=== PATIENT | male | born 1955 | race African-American/Black ===

== ENCOUNTER 2019-12-21 05:40 | Emergency (ER) | payer MEDICAID ==
[~2019-12-21] VITALS: Ht 180.3 cm; Wt 82.0 kg
[2019-12-21 05:45] VITALS: BP 91/58
[2019-12-21] MEDS ORDERED: ACETAMINOPHEN 325MG TABLET PO ONE (06:15)
[2019-12-21 06:30] LABS: BASOPHILS % 0.8 % (0.0-2.0); EOSINOPHILS % 1.5 % (0.0-5.0); HEMATOCRIT. 33.4 % (42.0-52.0); HEMOGLOBIN. 10.8 g/dL (14.0-18.0); LYMPHOCYTES % 23.7 % (20.0-50.0); MEAN CORPUSCULAR HEMOGLOBIN 26.8 pg (28.0-32.0); MEAN CORPUSCULAR VOLUME 83.4 fL (80.0-94.0); MEAN PLATELET VOLUME 9.3 fl (7.4-10.4); MONOCYTES % 9.1 % (2.0-8.0); NEUTROPHILS % 64.9 % (40.0-76.0); PLATELET 198 x1000/uL (130-400); RED BLOOD CELL COUNT 4.01 mill/uL (4.7-6.1); RED CELL DISTRIBUTION WIDTH 16.6 % (11.6-14.6)
[2019-12-21 06:35] LABS: CHLORIDE 112 mEq/L (98-107)
[2019-12-21 06:39] LABS: ETHANOL BLOOD < 10 mg/dL
[2019-12-21 06:58] LABS: CLARITY URINE CLOUDY (CLEAR); COLOR URINE DK YELLOW (YELLOW); KETONES URINE TRACE (NEGATIVE); LEUKOCYTE ESTERASE URINE 1+ (NEGATIVE); NITRITE URINE NEGATIVE (NEGATIVE); OCCULT BLOOD URINE 2+ (NEGATIVE); PH URINE 5.5 (4.5-8.0); PROTEIN URINE 1+ (NEGATIVE); SPECIFIC GRAVITY URINE 1.022 (1.005-1.030)
[2019-12-21 07:08] LABS: METHADONE URINE SCREEN NEGATIVE (NEGATIVE); OPIATES URINE SCREEN NEGATIVE (NEGATIVE); PHENCYCLIDINE URINE SCREEN PRESUMTIVE POSITIVE (NEGATIVE)
[2019-12-21 07:09] LABS: *AMPHETAMINES SCREEN URINE NEGATIVE (NEGATIVE); *BARBITURATES SCREEN URINE NEGATIVE (NEGATIVE); *BENZODIAZEPINES SCREEN URINE NEGATIVE (NEGATIVE); *COCAINE SCREEN URINE NEGATIVE (NEGATIVE); CANNABINOID URINE SCREEN NEGATIVE (NEGATIVE)
== END 2019-12-21 08:45 | disposition home or self-care (01) ==
LOC: ER 05:59
DX: M79.661 Pain in right lower leg (principal); F15.10 Other stimulant abuse, uncomplicated
CPT/HCPCS: 36415; 80053; 80305; 80320; 81003; 82962; 85025; 93005; 93971; 99285; G0480

== ENCOUNTER 2022-01-29 13:38 | Inpatient (IN) | payer MEDICARE, MEDICAID ==
[~2022-01-29] VITALS: Ht 180.3 cm; Wt 90.7 kg
[2022-01-29] MEDS ORDERED: SODIUM CHLORIDE 0.9% 1,000 ML IV ONE (14:15)
[2022-01-29 15:58] LABS: BASOPHILS % 0.3 % (0.0-2.0); EOSINOPHILS % 3.3 % (0.0-5.0); HEMATOCRIT. 45.8 % (42.0-52.0); HEMOGLOBIN. 15.1 g/dL (14.0-18.0); LYMPHOCYTES % 16.6 % (20.0-50.0); MEAN CORPUSCULAR HEMOGLOBIN 27.6 pg (28.0-32.0); MEAN PLATELET VOLUME 8.3 fl (7.4-10.4); MONOCYTES % 7.4 % (2.0-8.0); NEUTROPHILS % 72.4 % (40.0-76.0); PLATELET 250 x1000/uL (130-400); RED BLOOD CELL COUNT 5.45 mill/uL (4.7-6.1); RED CELL DISTRIBUTION WIDTH 18.6 % (11.6-14.6)
[2022-01-29 16:08] LABS: D-DIMER 0.31 mg/L FEU (<0.50); PARTIAL THROMBOPLASTIN TIME 27.1 sec (23.4-31.0); PROTHROMBIN TIME 11.1 sec (9.6-11.0)
[2022-01-29 16:20] LABS: CHLORIDE 102 mEq/L (98-107)
[2022-01-29 16:29] LABS: ETHANOL BLOOD < 10 mg/dL
[2022-01-29] MEDS ORDERED: CLOPIDOGREL 75MG TABLET PO ONE (16:45)
[2022-01-29] MEDS ORDERED: NITROGLYCERIN 0.4MG TABLET SL SL PRN ×2 (16:45→21:45)
[2022-01-29 17:34] LABS: *AMPHETAMINES SCREEN URINE NEGATIVE (NEGATIVE); *BARBITURATES SCREEN URINE NEGATIVE (NEGATIVE); *BENZODIAZEPINES SCREEN URINE NEGATIVE (NEGATIVE); *COCAINE SCREEN URINE NEGATIVE (NEGATIVE); CANNABINOID URINE SCREEN NEGATIVE (NEGATIVE); METHADONE URINE SCREEN NEGATIVE (NEGATIVE); OPIATES URINE SCREEN NEGATIVE (NEGATIVE); PHENCYCLIDINE URINE SCREEN NEGATIVE (NEGATIVE)
[2022-01-29] MEDS ORDERED: ONDANSETRON HCL 4MG/2ML INJ IV STA (18:09)
[2022-01-29] MEDS ORDERED: MORPHINE SULFATE 4 MG/ML CPJ (NOT FOR IM USE) IV STA (18:09)
[2022-01-29] MEDS ORDERED: ALBUTEROL (0.083%) 2.5MG/3ML NEB HHN STA (18:09)
[2022-01-29] MEDS ORDERED: ONDANSETRON HCL 4MG/2ML INJ IV PRN (20:45)
[2022-01-29] MEDS ORDERED: ACETAMINOPHEN 325MG TABLET PO PRN (20:45)
[2022-01-29] MEDS ORDERED: CLONIDINE 0.1MG TABLET PO PRN (20:45)
[2022-01-29] MEDS ORDERED: DIPHENHYDRAMINE 50MG/ML VIAL IV PRN (20:45)
[2022-01-29] MEDS ORDERED: HYDROCODONE/ACETAMINOPHEN 5/325MG TABLET PO PRN (23:30)
[2022-01-30] VITALS (7 sets, daily range): BP systolic 111–135; BP diastolic 69–82
[2022-01-30] MEDS: MORPHINE SULFATE 2 MG/ML CPJ (NOT FOR IM USE) IV PRN ×5 (00:17→21:13)
[2022-01-30] MEDS ORDERED: KEPP500 PO (01:19)
[2022-01-30] MEDS ORDERED: METF-414 PO (03:44)
[2022-01-30] MEDS: IPRATROPIUM/ALBUTEROL 0.5-3(2.5)MG/3ML NEB HHN PRN ×3 (04:41→17:15)
[2022-01-30 06:13] LABS: BASOPHILS % 0.5 % (0.0-2.0); EOSINOPHILS % 4.3 % (0.0-5.0); HEMOGLOBIN. 14.5 g/dL (14.0-18.0); LYMPHOCYTES % 22.5 % (20.0-50.0); MEAN CORPUSCULAR HEMOGLOBIN 27.8 pg (28.0-32.0); MEAN CORPUSCULAR VOLUME 84.2 fL (80.0-94.0); MEAN PLATELET VOLUME 8.2 fl (7.4-10.4); MONOCYTES % 8.9 % (2.0-8.0); NEUTROPHILS % 63.8 % (40.0-76.0); PLATELET 220 x1000/uL (130-400); RED BLOOD CELL COUNT 5.22 mill/uL (4.7-6.1); RED CELL DISTRIBUTION WIDTH 18.4 % (11.6-14.6)
[2022-01-30 07:49] LABS: CHLORIDE 104 mEq/L (98-107)
[2022-01-30] MEDS ORDERED: LORAZEPAM 2MG/ML CPJ IV PRN (12:45)
[2022-01-30] MEDS ORDERED: DEXTROSE 50% WATER 50ML SYRINGE IV PRN (13:00)
[2022-01-30] MEDS ORDERED: NALOXONE HCL 0.4MG/ML VIAL IV PRN (13:00)
[2022-01-30] MEDS: INSULIN LISPRO 100 UNITS/ML SUBCUT SCH ×3 (13:00→20:16)
[2022-01-30] MEDS: BLOOD SUGAR DIAGNOSTIC STRIP TEST SCH ×3 (13:01→20:16)
[2022-01-30] MEDS: METOPROLOL TARTRATE 25MG TABLET PO SCH ×2 (15:14→21:13)
[2022-01-30] MEDS: METFORMIN HCL 500MG TABLET PO SCH (16:55)
[2022-01-30] MEDS: LEVETIRACETAM 500MG TABLET PO SCH (21:13)
[2022-01-31] VITALS: BP 113/73
[2022-01-31] MEDS: IPRATROPIUM/ALBUTEROL 0.5-3(2.5)MG/3ML NEB HHN PRN ×3 (00:33→18:10)
[2022-01-31 03:54] VITALS: BP 142/78
[2022-01-31] MEDS: MORPHINE SULFATE 2 MG/ML CPJ (NOT FOR IM USE) IV PRN ×4 (05:38→18:05)
[2022-01-31] MEDS: INSULIN LISPRO 100 UNITS/ML SUBCUT SCH ×4 (06:02→21:00)
[2022-01-31] MEDS: BLOOD SUGAR DIAGNOSTIC STRIP TEST SCH ×4 (06:02→21:00)
[2022-01-31] MEDS ORDERED: NITROGLYCERIN SPRAY/4.9GM CAN TL NR (07:45)
[2022-01-31 08:00] VITALS: BP 147/81
[2022-01-31] MEDS: LEVETIRACETAM 500MG TABLET PO SCH ×2 (09:59→22:01)
[2022-01-31] MEDS: METFORMIN HCL 500MG TABLET PO SCH ×2 (09:59→17:58)
[2022-01-31] MEDS: METOPROLOL TARTRATE 25MG TABLET PO SCH (10:00)
[2022-01-31] MEDS ORDERED: IOHEXOL-350 100 ML BOTTLE ONE (10:38)
[2022-01-31 12:00] VITALS: BP 140/78
[2022-01-31 12:51] LABS: BASOPHILS % 0.6 % (0.0-2.0); EOSINOPHILS % 5.4 % (0.0-5.0); HEMATOCRIT. 44.1 % (42.0-52.0); HEMOGLOBIN. 14.4 g/dL (14.0-18.0); LYMPHOCYTES % 14.1 % (20.0-50.0); MEAN CORPUSCULAR HEMOGLOBIN 27.3 pg (28.0-32.0); MEAN CORPUSCULAR VOLUME 83.4 fL (80.0-94.0); MEAN PLATELET VOLUME 8.6 fl (7.4-10.4); MONOCYTES % 9.1 % (2.0-8.0); NEUTROPHILS % 70.8 % (40.0-76.0); PLATELET 243 x1000/uL (130-400); RED BLOOD CELL COUNT 5.28 mill/uL (4.7-6.1); RED CELL DISTRIBUTION WIDTH 17.8 % (11.6-14.6)
[2022-01-31] MEDS: ENOXAPARIN 80MG/0.8ML SYR SUBCUT NR ×2 (13:12→13:50)
[2022-01-31] MEDS: NITROGLYCERIN OINT 1GM/INCH UDPKT TD SCH ×2 (13:48→22:02)
[2022-01-31 14:56] LABS: CHLORIDE 102 mEq/L (98-107)
[2022-01-31 16:00] VITALS: BP 138/81
[2022-01-31 20:00] VITALS: BP 112/60
[2022-02-01] VITALS: BP 124/81
[2022-02-01] MEDS: MORPHINE SULFATE 2 MG/ML CPJ (NOT FOR IM USE) IV PRN ×5 (00:20→22:14)
[2022-02-01] MEDS: IPRATROPIUM/ALBUTEROL 0.5-3(2.5)MG/3ML NEB HHN PRN ×3 (00:59→21:41)
[2022-02-01 04:00] VITALS: BP 118/72
[2022-02-01] MEDS: NITROGLYCERIN OINT 1GM/INCH UDPKT TD SCH ×3 (06:42→21:12)
[2022-02-01 07:21] LABS: BASOPHILS % 0.5 % (0.0-2.0); EOSINOPHILS % 5.5 % (0.0-5.0); HEMATOCRIT. 43.7 % (42.0-52.0); HEMOGLOBIN. 14.4 g/dL (14.0-18.0); LYMPHOCYTES % 21.1 % (20.0-50.0); MEAN CORPUSCULAR HEMOGLOBIN 27.4 pg (28.0-32.0); MEAN PLATELET VOLUME 8.5 fl (7.4-10.4); MONOCYTES % 8.7 % (2.0-8.0); NEUTROPHILS % 64.2 % (40.0-76.0); PLATELET 258 x1000/uL (130-400); RED BLOOD CELL COUNT 5.26 mill/uL (4.7-6.1)
[2022-02-01] MEDS: BLOOD SUGAR DIAGNOSTIC STRIP TEST SCH ×4 (07:29→21:07)
[2022-02-01] MEDS: INSULIN LISPRO 100 UNITS/ML SUBCUT SCH ×4 (07:29→21:00)
[2022-02-01 07:53] LABS: CHLORIDE 101 mEq/L (98-107)
[2022-02-01 08:00] VITALS: BP 114/71
[2022-02-01] MEDS: LEVETIRACETAM 500MG TABLET PO SCH ×2 (09:17→21:11)
[2022-02-01] MEDS: METFORMIN HCL 500MG TABLET PO SCH ×2 (09:17→17:40)
[2022-02-01] MEDS: METHYLPREDNISOLONE SOD SUCC 40 MG/ML VIAL IV SCH ×3 (10:39→21:11)
[2022-02-01 12:00] VITALS: BP 130/80
[2022-02-01] MEDS ORDERED: IODIXANOL 320MG/ML 100 ML BOTTLE IV ONE (12:22)
[2022-02-01] MEDS ORDERED: LIDOCAINE HCL/PF 1% 10 MG/ML 5ML VIAL ONE (12:22)
[2022-02-01] MEDS ORDERED: HEPARIN 1000 UNITS/ML 10ML ONE (12:23)
[2022-02-01] MEDS ORDERED: FENTANYL CITRATE/PF 50MCG/ML 2ML VIAL ONE (12:45)
[2022-02-01] MEDS ORDERED: MIDAZOLAM HCL 2 MG/2 ML VIAL ONE (12:45)
[2022-02-01] MEDS ORDERED: ONDANSETRON HCL 4MG/2ML INJ IV PRN (13:45)
[2022-02-01] MEDS ORDERED: ACETAMINOPHEN 325MG TABLET PO PRN (13:45)
[2022-02-01] MEDS ORDERED: ATROPINE SULFATE 1MG/10ML SYR IV PRN (13:45)
[2022-02-01 20:00] VITALS: BP 122/79
[2022-02-02] VITALS (7 sets, daily range): BP systolic 134–154; BP diastolic 77–89
[2022-02-02] MEDS: IPRATROPIUM/ALBUTEROL 0.5-3(2.5)MG/3ML NEB HHN PRN (01:24)
[2022-02-02] MEDS: MORPHINE SULFATE 2 MG/ML CPJ (NOT FOR IM USE) IV PRN ×5 (02:48→21:34)
[2022-02-02] MEDS: METHYLPREDNISOLONE SOD SUCC 40 MG/ML VIAL IV SCH ×3 (06:28→21:34)
[2022-02-02] MEDS: NITROGLYCERIN OINT 1GM/INCH UDPKT TD SCH ×3 (06:28→21:35)
[2022-02-02] MEDS: BLOOD SUGAR DIAGNOSTIC STRIP TEST SCH ×4 (06:28→21:23)
[2022-02-02] MEDS: INSULIN LISPRO 100 UNITS/ML SUBCUT SCH ×4 (06:30→21:00)
[2022-02-02 07:18] LABS: HEMATOCRIT. 42.9 % (42.0-52.0); MEAN CORPUSCULAR HEMOGLOBIN 27.2 pg (28.0-32.0); MEAN CORPUSCULAR VOLUME 83.5 fL (80.0-94.0); MEAN PLATELET VOLUME 8.1 fl (7.4-10.4); PLATELET 210 x1000/uL (130-400); RED BLOOD CELL COUNT 5.13 mill/uL (4.7-6.1); RED CELL DISTRIBUTION WIDTH 18.2 % (11.6-14.6)
[2022-02-02 07:22] LABS: CHLORIDE 102 mEq/L (98-107)
[2022-02-02] MEDS: METFORMIN HCL 500MG TABLET PO SCH ×2 (08:35→17:26)
[2022-02-02] MEDS: LEVETIRACETAM 500MG TABLET PO SCH ×2 (08:35→21:34)
[2022-02-02] MEDS ORDERED: FAMO20TA8 MT (11:32)
[2022-02-02] MEDS ORDERED: P20 MT (11:32)
[2022-02-02] MEDS ORDERED: ALBU18HF2 IH (11:32)
[2022-02-02 13:13] LABS: PLATELET ESTIMATE NORMAL
[2022-02-03] VITALS: BP 118/87
[2022-02-03] MEDS: MORPHINE SULFATE 2 MG/ML CPJ (NOT FOR IM USE) IV PRN ×4 (01:32→14:14)
[2022-02-03 04:00] VITALS: BP 125/82
[2022-02-03] MEDS: METHYLPREDNISOLONE SOD SUCC 40 MG/ML VIAL IV SCH ×2 (05:32→13:56)
[2022-02-03] MEDS: NITROGLYCERIN OINT 1GM/INCH UDPKT TD SCH ×2 (05:33→13:57)
[2022-02-03] MEDS: BLOOD SUGAR DIAGNOSTIC STRIP TEST SCH ×3 (06:14→17:10)
[2022-02-03] MEDS: INSULIN LISPRO 100 UNITS/ML SUBCUT SCH ×3 (06:14→17:40)
[2022-02-03 08:00] VITALS: BP 127/75
[2022-02-03] MEDS: LEVETIRACETAM 500MG TABLET PO SCH (09:43)
[2022-02-03] MEDS: METFORMIN HCL 500MG TABLET PO SCH ×2 (09:43→17:40)
[2022-02-03 12:00] VITALS: BP 136/80
[2022-02-03 14:14] VITALS: BP 136/80
== END 2022-02-03 19:03 | DRG 191 ==
LOC: ER 13:38 → 8WST 20:37 → ENRESERV 01-30 00:26
PROVIDERS: ADMIT Family Medicine Adult Medicine; ATTEND Family Medicine Adult Medicine
PROC: 4A023N7 Measurement of Cardiac Sampling and Pressure, Left Heart, Percutaneous Approach (ICD-10-PCS; principal; 2022-02-01)
PROC: B211YZZ Fluoroscopy of Multiple Coronary Arteries using Other Contrast (ICD-10-PCS; 2022-02-01)
PROC: B215YZZ Fluoroscopy of Left Heart using Other Contrast (ICD-10-PCS; 2022-02-01)
DX: I25.10 Atherosclerotic heart disease of native coronary artery without angina pectoris (principal); J96.00 Acute respiratory failure, unspecified whether with hypoxia or hypercapnia; J44.1 Chronic obstructive pulmonary disease with (acute) exacerbation; E11.40 Type 2 diabetes mellitus with diabetic neuropathy, unspecified; S09.90XA Unspecified injury of head, initial encounter; I10 Essential (primary) hypertension; E78.5 Hyperlipidemia, unspecified; G40.909 Epilepsy, unspecified, not intractable, without status epilepticus; F17.210 Nicotine dependence, cigarettes, uncomplicated; F15.90 Other stimulant use, unspecified, uncomplicated; Z88.6 Allergy status to analgesic agent; Z90.49 Acquired absence of other specified parts of digestive tract; Z95.0 Presence of cardiac pacemaker; I25.2 Old myocardial infarction; W22.01XA Walked into wall, initial encounter; Y93.89 Activity, other specified; Y92.89 Other specified places as the place of occurrence of the external cause; Y99.8 Other external cause status
CPT/HCPCS: 36415; 71045; 75571; 80048; 80053; 80061; 80305; 80320; 82962; 83036; 83735; 83880; 84484; 85025; 85379; 87426; 93005; 93306; 93458; 93970; 94640; 99285; C1769; C1893; J1644; J1650; J1815; J2250; J2270; J2405; J2920; J3010; J3490; J7030; Q9967; G0480